=== PATIENT | male | born 1965 | race Caucasian/White ===

== ENCOUNTER 2023-04-17 08:31 | Emergency (ER) | payer BC, SELFPAY ==
--- NOTE | 2023-04-17 10:01 | ED.GENMED ---
History of Present Illness
General
Chief Complaint: Cold/Flu/URI Symptoms
Source: patient
Exam Limitations: none
Time Seen by Provider: 04/17/23 09:45
Nursing documentation reviewed up to this point in time: agreed with
Travel History
Have you had any contact with someone who has COVID-19?: No
Do you have any symptoms of coronavirus? Fever > 100 degrees, chills, cough, shortness of breath, sore throat, loss of taste or smell, muscle aches, or headache?: Yes
Symptoms:: cough
History of Present Illness
History of Present Illness:
Patient presents to ED secondary to 4-day history of worsening cough with shortness of breath, along with sharp right flank/lower chest pain. Patient also reports generalized body ache and 'not feeling well, along with decreased appetite. Patient
reports attending conference, where he was in close proximity to over 100 people earlier this week. Denies recent travel or surgery. Denies leg pain or swelling. Denies back pain. Denies fever. Denies nausea, vomiting, or diarrhea. Denies
trauma. Denies previous history of similar symptoms. There is no family history of heart disease or blood clots.
Past History
Past History
ED Past Medical History: None
ED Past Surgical History: None
Social History
Tobacco: Non-smoker
Alcohol: Occasional
Drug: None
Personal:
Living: with family
Review of Systems
Review of Systems
Allergies reviewed?: Yes
All Other Systems: ROS reviewed and negative except as documented in HPI and ROS
Constitutional: Reports no symptoms; Denies fever or chills
EENT: Reports no symptoms
Respiratory: Reports cough and trouble breathing
Cardiac: Reports chest pain
ABD/GI: Reports no symptoms
: Reports no symptoms
Musculoskeletal: Reports no symptoms
Skin: Reports no symptoms
Neurological: Reports no symptoms
Phy Exam
Physical Exam
Physical Exam:
Physical Exam
General: mild distress, not acutely ill. afebrile
Head: nc/at. eomi
Neck: supple. no meningeal signs.
Heart: s1/s2 regular rate and rhythm, no murmur. equal radial pulses.
Lungs: no acute respiratory distress. clear bilaterally
Abdomen: normal bowel sounds. not tender.
Neuro: alert and oriented. no focal neurological deficits
Skin: no rash
Psychiatric: well kept. interactive and cooperative
Extremities: no edema. no calf tenderness.
Course
Orders/Labs/Results
Orders:
Orders
04/17/23 09:54
Electrocardiogram (*1) Urgent
Reason for Study: Shortness of Breath
EKG- Treatment ONCE
Guaifenesin/Codeine Solution [Robitussin AC] 10 ml PO NOW STA
04/17/23 09:55
Albuterol Nebs [Ventolin Nebules] 2.5 mg INH R NOW STA
04/17/23 10:03
Ketorolac [Toradol] 15 mg IV NOW STA
04/17/23 10:07
COVID-19 Antigen Urgent
Source: Nasal Swab
Complete Blood Count/With Diff Urgent
Comprehensive Metabolic Panel Urgent
D-Dimer Urgent
Magnesium Urgent
Troponin I Urgent
Influenza A+B Rapid Molecular Urgent
RAMA Source: Nasal Swab
Specimen Description:
04/17/23 10:11
0.9% Sodium Chloride 500 ml [Nss] 500 ml IV BOLUS
Abnormal Lab Results
04/17/23
10:07
Absolute Lymphs (auto) 0.5 L 10^3/uL
(1.2-3.4)
Absolute Monos (auto) 1.0 H 10^3/uL
(0.1-0.6)
Immature Gran % 0.6 H %
(0-0.5)
Neutrophils % 77.6 H %
(42.2-75.2)
Lymphocytes % 6.9 L %
(20.5-51.1)
Monocytes % 14.0 H %
(1.7-9.3)
D-Dimer 0.60 H ug/mlFEU
(0.00-0.50)
BUN 8 L mg/dl
(9-20)
Glucose 121 H mg/dl
(70-99)
04/17/23 10:07
04/17/23 10:07
Vital Signs
Initial and Last Documented VS:
Initial Vital Signs
Temp Pulse Resp Pulse Ox
99.6 F 79 16 98
04/17/23 08:49 04/17/23 08:49 04/17/23 08:49 04/17/23 08:49
Last Documented Vital Signs
Temp Pulse Resp BP Pulse Ox
99.6 F 90 15 140/79 91
04/17/23 08:49 04/17/23 11:00 04/17/23 11:00 04/17/23 10:10 04/17/23 10:45
MDM/Problems Addressed
MDM/Problems Addressed:
History and exam consistent with symptoms secondary to influenza. Fortunately, patient is otherwise well-appearing, hemodynamically stable, without any acute distress, nor any significant evidence of dehydration. As patient's symptoms are at least
4 days in, I do not feel the patient would benefit from Tamiflu at this time. As such, patient will be discharged home in stable condition, with recommendation for supportive treatment, including Tylenol/Motrin for pain/fever, along with continual
hydration.
Mildly elevated D-dimer, likely reactive, without any risk factors for PE. As such, I do not feel that any further investigation for pulm embolism is warranted at this time.
*EKG
Interpreted by ED Provider?: Yes
Heart Rate: 91
Rate: normal
Rhythm: sinus
[place]: normal axis
Interval: normal interval
QRS Pattern: normal QRS
*Critical Care Note
Total Time (30-74mins, 75-104mins- exclusive of procedures): Not Applicable
ED Attending Note
-
Portions of this chart may have been created with voice recognition software.� Occasional wrong word or��sound alike� substitutions may have occurred due to the inherent limitations of voice recognition software.
Discharge Plan
Departure
Patient Disposition: Home (Routine Discharge)
Date of Disposition: 04/17/23
Time of Disposition: 10:53
Patient with high blood pressure during this ER visit?: Yes
Condition: Good
Discharge Problem:
Influenza
Instructions: Flu, Adult (DC)
Prescriptions:
New
albuterol sulfate [ProAir HFA] 90 mcg/actuation Hfa Aerosol Inhaler
2 puff INHALATION Q4HPRN PRN (Reason: shortness of breath) Qty: 8.5 0RF
dextromethorphan-guaifenesin [Robitussin Cough-Chest [place] DM] 5-100 mg/5 mL liquid
10 ml PO Q8H PRN (Reason: Cough) Qty: 100 0RF
No Action
levothyroxine 150 MCG tablet
1 tab PO DAILY
triamcinolone acetonide [Nasacort] 10.8 ML aerosol,spray
2 sprays intranasal DAILY
Botox: Vial
1 0 unit SC [id number]
ibuprofen 200 MG tablet
600 mg PO QIDPRN PRN (Reason: pain) Qty: 1 0RF
oxycodone-acetaminophen 5 MG/325 MG tablet
1 - 2 tab PO Q4HPRN PRN (Reason: pain not relieved by ibuprofen) Qty: 15 0RF
Referrals:
Tom Razo MD [Family Provider] -
Activity Restrictions/Additional Instructions:
As discussed, please continue to take Tylenol/Motrin for fever/pain, along with continual hydration at home.
Interventions
Interventions:
*Risk Screen - Suicide Last Done: 04/17/23 10:21
*General Assessment Last Done: 04/17/23 10:21
*Neglect/Abuse Screening Last Done: 04/17/23 10:21
ED- Fall Risk Assessment Last Done: 04/17/23 10:21
*ED COVID-19 Vaccine History Last Done: 04/17/23 08:49
*Nursing Disposition Last Done: 04/17/23 11:19
ED- Pulmonary Assessment Last Done: 04/17/23 10:21
Discharge Date and Time
Discharge Date/Time: 04/17/23 11:20
[2023-04-17 10:08] VITALS: BMI 27.7
[2023-04-17 10:10] VITALS: BP 140/79
[2023-04-17] MEDS: TORADOL 15 MG IV (10:16)
[2023-04-17] MEDS: ROBITUSSIN AC 10 ML PO (10:16)
[2023-04-17] MEDS: NSS 500 IV (10:17)
[2023-04-17] MEDS: VENTOLIN NEBULES 2.5 MG INH (10:17)
[2023-04-17 10:27] LABS: % Basophils 0.6 % (0-2); % Eosinophils 0.3 % (0-6); % Immature Granulocytes 0.6 % (0-0.5); % Lymphocytes 6.9 % (20.5-51.1); % Neutrophils 77.6 % (42.2-75.2); Absolute Lymphocytes 0.5 10^3/uL (1.2-3.4); Absolute Neutrophils 5.6 10^3/uL (1.4-6.5); Hematocrit 43.3 % (39.0-52.0); Mean Corp Hgb Conc. 34.6 g/dL (33.0-37.0); Mean Corpuscular Hgb 30.1 pg (27.0-31.0); Mean Corpuscular Volume 86.9 fL (80.0-94.0); Mean Platelet Volume 8.7 fL (7.4-10.4); Nucleated Red Blood Cells % 0 % (-); Platelet Count 261 10^3/uL (130-400); Red Blood Cell Count 4.98 10^6/uL (4.70-6.10); Red Cell Dist. Width 12.8 % (11.5-14.5); White Blood Cell Count 7.3 10^3/uL (4.8-10.8)
[2023-04-17 10:41] LABS: ALT (SGPT) 37 U/L (0-50); AST (SGOT) 36 U/L (17-59); Albumin 4.7 g/dl (3.5-5.0); Alkaline Phosphatase 73 U/L (38-126); Blood Urea Nitrogen 8 mg/dl (9-20); Calcium 9.4 mg/dl (8.4-10.2); Carbon Dioxide 27 mmol/L (22-30); Chloride 103 mmol/L (98-107); Estimated Creatinine Clearance 105 ml/min; Glucose 121 mg/dl (70-99); Potassium 3.6 mmol/L (3.5-5.1); Sodium 139 mmol/L (135-145); Total Bilirubin 0.5 mg/dl (0.2-1.3); Total Protein 7.7 g/dl (6.3-8.2); eGFR > 60.00
[2023-04-17 10:52] LABS: Troponin I < 0.012 ng/ml
[2023-04-17 10:53] LABS: COVID-19 Antigen Negative (Negative)
== END 2023-04-17 11:20 | disposition home or self-care (01) ==
LOC: EMR 08:31
PROVIDERS: EMERGENCY PHYSICIAN Emergency Medicine; FAMILY PHYSICIAN Family Medicine
DX: J10.1 Influenza due to other identified influenza virus with other respiratory manifestations (principal); R03.0 Elevated blood-pressure reading, without diagnosis of hypertension; Z11.52 Encounter for screening for COVID-19
CPT/HCPCS: 99284; 96374; 96361; 94640; 80053; 83735; 84484; 85025; 85379; 87502; 87811; 93005